=== PATIENT | female | born 1955 | race Caucasian/White ===

== ENCOUNTER 2020-09-10 10:35 | Outpatient (CLI) | payer MEDICARE, BC | END 2020-09-10 10:36 | disposition home or self-care (01) | LOC: BICRAD 10:35 | PROVIDERS: ATTEND Family Medicine | DX: M25.461 Effusion, right knee (principal); M17.11 Unilateral primary osteoarthritis, right knee ==

== ENCOUNTER 2020-09-18 15:00 | Outpatient (CLI) | payer MEDICARE, BC | END 2020-09-18 15:01 | disposition home or self-care (01) | LOC: BICULT 15:00 | PROVIDERS: ATTEND Family Medicine | DX: M79.89 Other specified soft tissue disorders (principal) ==

== ENCOUNTER 2021-04-10 11:07 | Outpatient (CLI) | payer MEDICARE, BC | END 2021-04-10 11:08 | disposition home or self-care (01) | LOC: BICMAMMO 11:07 | PROVIDERS: ATTEND Family Medicine | DX: Z12.31 Encounter for screening mammogram for malignant neoplasm of breast (principal); Z80.3 Family history of malignant neoplasm of breast | CPT/HCPCS: 77063; 77067 ==

== ENCOUNTER 2021-06-22 20:30 | Inpatient (IN) | payer MEDICARE, BC ==
[~2021-06-22 20:30] MED LIST: Iopamidol-370 76% 500 ML 1 ML ONE
[2021-06-22 21:42] LABS: #Eosinphils 0.1 thou/uL (0.0-0.7); #Lymphocytes 1.8 thou/uL (1.20-3.40); %Basophils 0.1 % (0.0-1.0); %Eosinophils 0.7 % (0.0-10.0); %Lymphocytes 18.5 % (21.0-51.0); %Monocytes 9.9 % (0.0-10.0); %Neutrophils 70.8 % (42.0-75.0); Hemoglobin 15.5 g/dL (12.0-16.0); Mean Corpuscular HGB CONC 34.8 g/dL (32.0-36.0); Mean Corpuscular Hemoglobin 32.6 pg (27.0-31.0); Mean Corpuscular Volume 93.7 fL (78.0-98.0); Mean Platelet Volume 6.9 fL (7.4-10.4); Platelet Count 461 thou/uL (130-400); RBC Distribution Width 11.6 % (11.5-14.5); Red Blood Cell (RBC) Count 4.75 mill/uL (4.20-5.40); White Blood Cell (WBC) Count 9.8 thou/uL (4.8-10.8)
[2021-06-22 22:02] LABS: ALT (SGPT) 23 U/L (8-55); AST (SGOT) 23 U/L (5-34); Alkaline Phosphatase 76 U/L (40-110); Anion Gap 19 mmol/L (10-20); BUN (Urea Nitrogen) 12 mg/dL (9.8-20.1); Calc. Creatinine Clearance 0 mL/min (70-130); Calcium 8.9 mg/dL (7.8-10.44); Carbon Dioxide 21 mmol/L (23-31); Chloride 106 mmol/L (98-107); Globulin 2.9 g/dL (2.4-3.5); Glucose 120 mg/dL (80-115); Potassium 3.8 mmol/L (3.5-5.1); Protein, Total 6.9 g/dL (5.8-8.1); Sodium 142 mmol/L (136-145)
[2021-06-22 22:22] LABS: CKMB 1.8 ng/mL (0-6.6)
[2021-06-22 22:27] LABS: Bacteria/HPF None Seen HPF (None Seen); Bilirubin Negative (Negative); Blood, Urine Trace (Negative); Calcium Oxalate Crystals 1+ HPF (None Seen); Clarity Clear (Clear); Glucose, Urine (Dipstick) Normal (Negative); Ketone, Urine 20 mg/dL (Negative); Leukocyte Negative Leu/uL (Negative); Nitrite Negative (Negative); Protein, Urine (Dipstick) 70 mg/dL (Neg-Trace); RBC/HPF 0-3 HPF (0-3); Specific Gravity, Urine 1.035 (1.002-1.036); Squamous Epithelial 0-3 HPF (0-3); WBC/HPF 0-3 HPF (0-3)
[2021-06-22] MEDS ORDERED: Enoxaparin Sodium 100 MG/ML SYRINGE ONE (23:06)
[2021-06-22] MEDS ORDERED: Enoxaparin Sodium 80 MG/0.8 ML SYRINGE ONE (23:07)
[2021-06-23 01:39] LABS: Troponin I 0.282 ng/mL (< 0.028)
[2021-06-23 02:40] LABS: SARS-CoV-2 NAA Rapid Test DETECTED (NotDetected)
[2021-06-23] MEDS ORDERED: Acetaminophen 650 MG Suppository PR PRN (06:50)
[2021-06-23] MEDS ORDERED: Ondansetron PF 4 MG/2 ML Vial IVP PRN (06:50)
[2021-06-23] MEDS ORDERED: Ondansetron ODT 4 MG TAB PO PRN (06:50)
[2021-06-23] MEDS ORDERED: Acetaminophen 325 MG TAB PO PRN (06:50)
[2021-06-23 07:57] LABS: Troponin I 0.216 ng/mL (< 0.028)
[2021-06-23] MEDS ORDERED: Dexamethasone 10 MG/ML VIAL SLOW IVP SCH (09:00)
[2021-06-23] MEDS ORDERED: Enoxaparin Sodium 80 MG/0.8 ML SYRINGE ONE (10:24)
[2021-06-23] MEDS ORDERED: Enoxaparin Sodium 100 MG/ML SYRINGE ONE (10:24)
[2021-06-23] MEDS: Ascorbic Acid 500 mg Chewable Tablet PO SCH (10:30)
[2021-06-23] MEDS: Zinc Sulfate 220 MG CAP PO SCH (10:30)
[2021-06-23] MEDS: Cholecalciferol (Vitamin D3) 400 UNITS TAB PO SCH (10:30)
[2021-06-23] MEDS: Enoxaparin Sodium 80 MG/0.8 ML SYRINGE SC SCH ×2 (10:30→21:04)
[2021-06-23] MEDS: Enoxaparin Sodium 100 MG/ML SYRINGE SC SCH ×2 (10:30→21:04)
[2021-06-23] MEDS ORDERED: Zinc Sulfate 220 MG CAP ONE (10:32)
[2021-06-23] MEDS ORDERED: Ascorbic Acid 500 mg Chewable Tablet ONE (10:32)
[2021-06-23 19:50] VITALS: BMI 55.7
[2021-06-24 06:40] LABS: Hemoglobin 13.4 g/dL (12.0-16.0); Mean Corpuscular HGB CONC 33.6 g/dL (32.0-36.0); Mean Corpuscular Hemoglobin 32.1 pg (27.0-31.0); Mean Corpuscular Volume 95.4 fL (78.0-98.0); Mean Platelet Volume 6.9 fL (7.4-10.4); Platelet Count 387 thou/uL (130-400); RBC Distribution Width 11.8 % (11.5-14.5); Red Blood Cell (RBC) Count 4.18 mill/uL (4.20-5.40); White Blood Cell (WBC) Count 8.6 thou/uL (4.8-10.8)
[2021-06-24 06:52] LABS: Anion Gap 13 mmol/L (10-20); BUN (Urea Nitrogen) 7 mg/dL (9.8-20.1); Calc. Creatinine Clearance 192 mL/min (70-130); Calcium 8.8 mg/dL (7.8-10.44); Carbon Dioxide 25 mmol/L (23-31); Chloride 108 mmol/L (98-107); Glucose 95 mg/dL (80-115); Potassium 3.3 mmol/L (3.5-5.1); Sodium 143 mmol/L (136-145)
[2021-06-24 07:25] LABS: Band 5 % (5-11); Eosinophils 2 % (0-10); Lymphocytes 29 % (21-51); MDiff Complete? YES; Metamyelocyte 1 % (0-0); Monocytes 14 % (0-10); Neutrophil 49 % (42-75); Platelet Morphology Comment Appears Adequate; RBC Morphology Normal
[2021-06-24] MEDS ORDERED: Potassium Chloride 20 MEQ TAB PO SCH (07:30)
[2021-06-24] MEDS: Enoxaparin Sodium 100 MG/ML SYRINGE SC SCH (09:07)
[2021-06-24] MEDS: Cholecalciferol (Vitamin D3) 400 UNITS TAB PO SCH (09:08)
[2021-06-24] MEDS: Enoxaparin Sodium 80 MG/0.8 ML SYRINGE SC SCH (09:08)
[2021-06-24] MEDS: Zinc Sulfate 220 MG CAP PO SCH (09:08)
[2021-06-24] MEDS: Ascorbic Acid 500 mg Chewable Tablet PO SCH (09:08)
[2021-06-24] MEDS: Dexamethasone 4 mg/ml Vial SLOW IVP SCH (11:06)
[2021-06-24] MEDS ORDERED: cefTRIAXone\\ROCEPHIN 1 GM in Sodium Chloride 0.9% 100 ML IVPB SCH (15:00)
[2021-06-24] MEDS: Apixaban 5 MG TAB PO SCH (22:00)
[2021-06-25 06:25] LABS: Anion Gap 11 mmol/L (10-20); BUN (Urea Nitrogen) 8 mg/dL (9.8-20.1); CRP (Inflammatory) 2.71 mg/dL (= or < 0.5); Calc. Creatinine Clearance 205 mL/min (70-130); Calcium 9.1 mg/dL (7.8-10.44); Carbon Dioxide 27 mmol/L (23-31); Chloride 106 mmol/L (98-107); Glucose 106 mg/dL (80-115); Potassium 3.9 mmol/L (3.5-5.1); Sodium 140 mmol/L (136-145)
[2021-06-25] MEDS: Zinc Sulfate 220 MG CAP PO SCH (08:27)
[2021-06-25] MEDS: Dexamethasone 4 mg/ml Vial SLOW IVP SCH (08:27)
[2021-06-25] MEDS: Apixaban 5 MG TAB PO SCH (08:27)
[2021-06-25] MEDS: Cholecalciferol (Vitamin D3) 400 UNITS TAB PO SCH (08:27)
[2021-06-25] MEDS: Ascorbic Acid 500 mg Chewable Tablet PO SCH (08:27)
[2021-06-25 12:45] VITALS: BP 133/65; TEMP 97.7
== END 2021-06-25 14:00 | disposition home or self-care (01) | DRG 175 ==
LOC: ERS 20:30 → ERHOLD 23:34 → 2SE 06-23 19:22
PROVIDERS: ADMIT Student in an Organized Health Care Education/Training Program; ATTEND Family Medicine
PROC: 8E0ZXY6 Isolation (ICD-10-PCS; principal; 2021-06-22)
PROC: 3E0333Z Introduction of Anti-inflammatory into Peripheral Vein, Percutaneous Approach (ICD-10-PCS; 2021-06-23)
DX: I26.99 Other pulmonary embolism without acute cor pulmonale (principal); J96.01 Acute respiratory failure with hypoxia; U07.1 COVID-19; I82.409 Acute embolism and thrombosis of unspecified deep veins of unspecified lower extremity; N39.0 Urinary tract infection, site not specified; Z68.43 Body mass index [BMI] 50.0-59.9, adult; E66.01 Morbid (severe) obesity due to excess calories; K21.9 Gastro-esophageal reflux disease without esophagitis; K80.20 Calculus of gallbladder without cholecystitis without obstruction; R79.89 Other specified abnormal findings of blood chemistry; Z79.82 Long term (current) use of aspirin; Z98.51 Tubal ligation status; Z87.891 Personal history of nicotine dependence; Z79.899 Other long term (current) drug therapy; Z79.52 Long term (current) use of systemic steroids; Z88.1 Allergy status to other antibiotic agents
CPT/HCPCS: 36415; 71045; 71275; 74174; 80048; 80053; 81003; 81015; 82553; 83880; 84484; 85025; 85379; 86140; 87040; 87086; 93005; 93306; 93970; J0696; J1100; J1650; J3490; Q9967; U0002

== ENCOUNTER 2021-07-21 12:13 | Outpatient (CLI) | payer MEDICARE, BC | END 2021-07-21 12:14 | disposition home or self-care (01) | LOC: BICRAD 12:13 | PROVIDERS: ATTEND Family Medicine | DX: R06.02 Shortness of breath (principal) | CPT/HCPCS: 71046 ==

== ENCOUNTER 2022-03-18 14:49 | Outpatient (CLI) | payer MEDICARE, BC | END 2022-03-18 14:50 | disposition home or self-care (01) | LOC: ULT 14:49 | PROVIDERS: ATTEND Internal Medicine Pulmonary Disease | DX: I26.99 Other pulmonary embolism without acute cor pulmonale (principal); I08.0 Rheumatic disorders of both mitral and aortic valves | CPT/HCPCS: 93306 ==

== ENCOUNTER 2022-05-19 13:49 | Outpatient (CLI) | payer MEDICARE, BC | END 2022-05-19 13:50 | disposition home or self-care (01) | LOC: BICULT 13:49 | PROVIDERS: ATTEND Internal Medicine Pulmonary Disease | DX: I26.99 Other pulmonary embolism without acute cor pulmonale (principal) | CPT/HCPCS: 36415; 80053; 82306; 83735; 85025; 93970 ==

== ENCOUNTER 2022-06-14 11:57 | Outpatient (CLI) | payer MEDICARE, BC | END 2022-06-14 11:58 | disposition home or self-care (01) | LOC: BICMAMMO 11:57 | PROVIDERS: ATTEND Family Medicine | DX: Z12.31 Encounter for screening mammogram for malignant neoplasm of breast (principal); Z80.3 Family history of malignant neoplasm of breast | CPT/HCPCS: 77063; 77067 ==

== ENCOUNTER 2023-02-04 09:32 | Outpatient (CLI) | payer MEDICARE, BC ==
[2023-02-04] MEDS ORDERED: Iopamidol-370 76% 500 ML MDV (1 ML CHARGE) ONE (11:07)
== END 2023-02-04 09:33 | disposition home or self-care (01) ==
LOC: BICCT 09:32
PROVIDERS: ATTEND Family Medicine
DX: K43.9 Ventral hernia without obstruction or gangrene (principal); K42.9 Umbilical hernia without obstruction or gangrene; K80.20 Calculus of gallbladder without cholecystitis without obstruction; R93.3 Abnormal findings on diagnostic imaging of other parts of digestive tract
CPT/HCPCS: 74177; Q9967

== ENCOUNTER 2023-04-01 09:05 | Outpatient (CLI) | payer MEDICARE, BC ==
[2023-04-01 10:15] LABS: #Basophils 0.1 10x3/uL (0.0-0.2); #Eosinphils 0.1 10x3/uL (0.0-0.5); #Monocytes 0.7 10x3/uL (0.0-1.1); #Neutrophils 3.2 10x3/uL (1.5-8.4); %Basophils 0.8 % (0.0-2.0); %Eosinophils 1.9 % (0.0-6.0); %Lymphocytes 32.2 % (18.0-47.0); %Neutrophils 53.8 % (40.0-75.0); Hematocrit 44.7 % (34.9-44.5); Hemoglobin 15.5 g/dL (12.0-15.5); Mean Corpuscular HGB CONC 34.7 g/dL (32.0-36.0); Mean Corpuscular Hemoglobin 32.4 pg (27.0-33.0); Mean Corpuscular Volume 93.5 fl (81.6-98.3); Mean Platelet Volume 9.9 fl (7.4-10.4); Platelet Count 282 10x3/uL (150-450); RBC Distribution Width 11.9 % (11.5-14.5); Red Blood Cell (RBC) Count 4.78 10x6/uL (3.90-5.03); White Blood Cell (WBC) Count 5.9 10x3/uL (3.5-10.5)
[2023-04-01 10:28] LABS: ALT (SGPT) 20 U/L (8-55); AST (SGOT) 19 U/L (5-34); Albumin 4.3 g/dL (3.4-4.8); Alkaline Phosphatase 69 U/L (40-110); Anion Gap 15 mmol/L (10-20); BUN (Urea Nitrogen) 15 mg/dL (9.8-20.1); Bilirubin, Direct 0.6 mg/dL (0.1-0.3); Calc. Creatinine Clearance 0 mL/min (70-130); Calcium 9.5 mg/dL (7.8-10.44); Carbon Dioxide 25 mmol/L (23-31); Chloride 105 mmol/L (98-107); Estimated GFR 76; Globulin 2.4 g/dL (2.4-3.5); Glucose 95 mg/dL (80-115); Potassium 4.3 mmol/L (3.5-5.1); Protein, Total 6.7 g/dL (5.8-8.1); Sodium 141 mmol/L (136-145)
== END 2023-04-01 09:06 | disposition home or self-care (01) ==
LOC: LABBT 09:05
PROVIDERS: ATTEND Surgery
DX: Z01.818 Encounter for other preprocedural examination (principal); K80.20 Calculus of gallbladder without cholecystitis without obstruction
CPT/HCPCS: 80053; 80076; 85025; 93005; 93010

== ENCOUNTER 2023-04-06 05:48 | Inpatient (IN) | payer MEDICARE, BC ==
[2023-04-01 09:45] VITALS: BMI 53.1
[2023-04-06] MEDS ORDERED: Indocyanine Green 25 MG/10 ML VIAL ONE (06:55)
[2023-04-06] MEDS ORDERED: EPINEPHrine 1 MG/ML VIAL ONE (06:56)
[2023-04-06] MEDS ORDERED: Bupivacaine 0.25% HCL 30 ML VIAL ONE (06:56)
[2023-04-06] MEDS ORDERED: Sodium Chloride 0.9% 100 ML ONE (07:18)
[2023-04-06] MEDS ORDERED: cefOXitin 2 GM VIAL ONE (07:18)
[2023-04-06] MEDS ORDERED: Dexmedetomidine 200 MCG/2 ML VIAL ONE (07:23)
[2023-04-06] MEDS ORDERED: SUGAMMADEX SODIUM 200 MG/2 ML VIAL ONE (07:24)
[2023-04-06] MEDS ORDERED: Fentanyl 250 MCG/5 ML VIAL ONE (07:24)
[2023-04-06] MEDS ORDERED: Rocuronium Bromide 10 MG/ML (10ML VIAL) ONE (07:40)
[2023-04-06] MEDS ORDERED: NEOSTIGMINE 3 MG/3 ML SYR 3 MG/3 ML SYRINGE ONE (07:40)
[2023-04-06] MEDS ORDERED: Succinylcholine Chloride 100 MG/5 ML SYRINGE FS ONE (07:40)
[2023-04-06] MEDS ORDERED: Glycopyrrolate 0.2 MG/ML 5 ML SYRINGE ONE (07:40)
[2023-04-06] MEDS ORDERED: Dexamethasone 20 MG/5 ML VIAL ONE (07:40)
[2023-04-06] MEDS ORDERED: Lidocaine 1% PF 5 ML VIAL ONE (07:40)
[2023-04-06] MEDS ORDERED: PROPOFOL 200 MG/20 ML VIAL ONE (07:40)
[2023-04-06] MEDS ORDERED: Ondansetron PF 4 MG/2 ML Vial ONE ×2 (07:40→12:56)
[2023-04-06] MEDS ORDERED: HYDROmorphone 2 MG/ML VIAL ONE (09:23)
[2023-04-06] MEDS ORDERED: HYDROmorphone 0.5 MG/0.5 ML SYRINGE ONE ×5 (09:28→10:40)
[2023-04-06] MEDS ORDERED: Calcium Carbonate 500 MG ChewTAB PO PRN (09:40)
[2023-04-06] MEDS ORDERED: Promethazine HCl 25 MG/ML VIAL IM PRN (09:40)
[2023-04-06] MEDS ORDERED: HYDROcodone/Acetaminophen 10/325 mg Tablet PO PRN ×2 (09:40)
[2023-04-06] MEDS ORDERED: Ondansetron PF 4 MG/2 ML Vial IVP PRN (09:40)
[2023-04-06] MEDS ORDERED: Dextrose 50% Abboject 50 ML SYRINGE SLOW IVP PRN (09:40)
[2023-04-06] MEDS ORDERED: Dextrose 5% in Water 1,000 ML IV PRN (09:40)
[2023-04-06] MEDS ORDERED: Mag-Al 1200 mg/1200 mg/30 ML UDCUP PO PRN (09:40)
[2023-04-06] MEDS ORDERED: hydrALAZINE 20 MG/ML VIAL SLOW IVP PRN (09:40)
[2023-04-06] MEDS ORDERED: Ipratropium/Albuterol 3 ML NEB NEB PRN (09:40)
[2023-04-06] MEDS ORDERED: Glucagon 1 MG/ML KIT IM PRN (09:40)
[2023-04-06] MEDS ORDERED: Morphine 4 MG/ML VIAL SLOW IVP PRN (09:40)
[2023-04-06] MEDS ORDERED: Morphine 2 MG/ML VIAL SLOW IVP PRN (09:40)
[2023-04-06] MEDS ORDERED: fentaNYL 50 mcg/mL 1 mL Vial ONE ×2 (10:46→10:59)
[2023-04-06] MEDS ORDERED: Piperacillin/Tazobactam 3.375 GM in Sodium Chloride 0.9% 100 ML IVPB SCH ×2 (11:00→13:45)
[2023-04-06] MEDS: Ketorolac Tromethamine 30 MG/ML VIAL IVP SCH ×2 (12:00→17:08)
[2023-04-06] MEDS: Sodium Chloride 0.9% 1,000 ML IV SCH ×2 (14:02→21:12)
[2023-04-06] MEDS: Piperacillin/Tazobactam 3.375 GM in Sodium Chloride 0.9% 100 ML IVPB SCH (15:22)
[2023-04-06] MEDS ORDERED: FLU VACC QS2023(65UP)/MF59C/PF 60 MCG/0.5 ML SYRINGE IM ONE (15:45)
[2023-04-06] MEDS: Famotidine 20 MG TAB PO SCH (21:13)
[2023-04-06] MEDS: Famotidine/PF 20 mg/2ml Vial SLOW IVP SCH (21:13)
[2023-04-07] MEDS: Piperacillin/Tazobactam 3.375 GM in Sodium Chloride 0.9% 100 ML IVPB SCH ×3 (00:18→17:50)
[2023-04-07] MEDS: Sodium Chloride 0.9% 1,000 ML IV SCH ×3 (00:18→20:55)
[2023-04-07] MEDS: Ketorolac Tromethamine 30 MG/ML VIAL IVP SCH ×4 (00:18→17:59)
[2023-04-07 05:50] LABS: #Monocytes 1.1 thou/uL (0.11-0.59); #Neutrophils 7.7 thou/uL (1.40-6.50); %Basophils 0.2 % (0.0-1.0); %Lymphocytes 11.5 % (21.0-51.0); %Neutrophils 77.1 % (42.0-75.0); Hemoglobin 14.1 g/dL (12.0-16.0); Mean Corpuscular HGB CONC 33.6 g/dL (32.0-36.0); Mean Corpuscular Hemoglobin 32.2 pg (27.0-31.0); Mean Corpuscular Volume 95.9 fl (78.0-98.0); Platelet Count 213 10x3/uL (130-400); RBC Distribution Width 11.9 % (11.5-14.5); Red Blood Cell (RBC) Count 4.38 mill/uL (4.20-5.40)
[2023-04-07 06:18] LABS: ALT (SGPT) 193 U/L (8-55); AST (SGOT) 156 U/L (5-34); Albumin 3.8 g/dL (3.4-4.8); Alkaline Phosphatase 68 U/L (40-110); Anion Gap 10 mmol/L (10-20); BUN (Urea Nitrogen) 11 mg/dL (9.8-20.1); Bilirubin, Total 2.1 mg/dL (0.2-1.2); Calc. Creatinine Clearance 159 mL/min (70-130); Carbon Dioxide 28 mmol/L (23-31); Chloride 107 mmol/L (98-107); Estimated GFR 70; Globulin 2.1 g/dL (2.4-3.5); Glucose 104 mg/dL (80-115); Lipase 5 U/L (8-78); Potassium 4.1 mmol/L (3.5-5.1); Protein, Total 5.9 g/dL (5.8-8.1); Sodium 141 mmol/L (136-145)
[2023-04-07] MEDS: Famotidine/PF 20 mg/2ml Vial SLOW IVP SCH ×2 (08:39→20:54)
[2023-04-07] MEDS: Famotidine 20 MG TAB PO SCH ×2 (08:47→20:53)
[2023-04-07 13:13] LABS: ALT (SGPT) 169 U/L (8-55); AST (SGOT) 114 U/L (5-34); Albumin 3.8 g/dL (3.4-4.8); Alkaline Phosphatase 67 U/L (40-110); Bilirubin, Direct 0.8 mg/dL (0.1-0.3); Bilirubin, Total 2.2 mg/dL (0.2-1.2); Protein, Total 5.8 g/dL (5.8-8.1)
[2023-04-08] MEDS: Piperacillin/Tazobactam 3.375 GM in Sodium Chloride 0.9% 100 ML IVPB SCH ×2 (00:07→08:16)
[2023-04-08] MEDS: Ketorolac Tromethamine 30 MG/ML VIAL IVP SCH ×2 (00:07→05:28)
[2023-04-08] MEDS: Sodium Chloride 0.9% 1,000 ML IV SCH (03:29)
[2023-04-08 06:26] LABS: ALT (SGPT) 120 U/L (8-55); AST (SGOT) 62 U/L (5-34); Albumin 3.4 g/dL (3.4-4.8); Alkaline Phosphatase 65 U/L (40-110); Bilirubin, Direct 0.8 mg/dL (0.1-0.3); Bilirubin, Total 2.3 mg/dL (0.2-1.2); Protein, Total 5.4 g/dL (5.8-8.1)
[2023-04-08 07:57] VITALS: BP 135/71; TEMP 98.5
[2023-04-08] MEDS: Famotidine 20 MG TAB PO SCH (08:16)
[2023-04-08] MEDS: Famotidine/PF 20 mg/2ml Vial SLOW IVP SCH (10:08)
== END 2023-04-08 11:32 | disposition home or self-care (01) | DRG 418 ==
LOC: SDC 05:48 → T4-A 09:44
PROVIDERS: ADMIT Surgery; ATTEND Surgery
PROC: 0FT44ZZ Resection of Gallbladder, Percutaneous Endoscopic Approach (ICD-10-PCS; principal; 2023-04-06)
PROC: 8E0W4CZ Robotic Assisted Procedure of Trunk Region, Percutaneous Endoscopic Approach (ICD-10-PCS; 2023-04-06)
DX: K80.12 Calculus of gallbladder with acute and chronic cholecystitis without obstruction (principal); Z68.43 Body mass index [BMI] 50.0-59.9, adult; E66.01 Morbid (severe) obesity due to excess calories; E11.9 Type 2 diabetes mellitus without complications; K43.9 Ventral hernia without obstruction or gangrene; K21.9 Gastro-esophageal reflux disease without esophagitis; M19.90 Unspecified osteoarthritis, unspecified site; Z98.51 Tubal ligation status; K66.0 Peritoneal adhesions (postprocedural) (postinfection); Z86.711 Personal history of pulmonary embolism
CPT/HCPCS: 36415; 36416; 78226; 80053; 80076; 83690; 85025; 88304; A9537; J0171; J0694; J1100; J1170; J1650; J1885; J2405; J2543; J2704; J3010; J3490; J7050; S0020; S0028

== ENCOUNTER 2023-04-14 10:22 | Outpatient (CLI) | payer OTHER | END 2023-04-14 10:23 | disposition home or self-care (01) | LOC: DTY/OP 10:22 | PROVIDERS: ATTEND Surgery | DX: E66.01 Morbid (severe) obesity due to excess calories (principal) | CPT/HCPCS: 97802 ==

== ENCOUNTER 2023-08-05 22:24 | Emergency (ER) | payer MEDICARE, BC ==
[2023-08-06 00:18] LABS: #Eosinphils 0.1 thou/uL (0.0-0.7); #Neutrophils 6.9 thou/uL (1.40-6.50); %Basophils 0.4 % (0.0-1.0); %Eosinophils 0.9 % (0.0-10.0); %Lymphocytes 22.3 % (21.0-51.0); %Monocytes 9.3 % (0.0-10.0); %Neutrophils 66.4 % (42.0-75.0); Hematocrit 33.1 % (36.0-47.0); Hemoglobin 11.7 g/dL (12.0-16.0); Mean Corpuscular HGB CONC 35.3 g/dL (32.0-36.0); Mean Corpuscular Hemoglobin 33.6 pg (27.0-31.0); Mean Corpuscular Volume 95.1 fl (78.0-98.0); Mean Platelet Volume 10.8 fL (7.4-10.4); Platelet Count 320 10x3/uL (130-400); RBC Distribution Width 13.3 % (11.5-14.5); Red Blood Cell (RBC) Count 3.48 mill/uL (4.20-5.40); White Blood Cell (WBC) Count 10.4 10x3/uL (4.8-10.8)
[2023-08-06 00:35] LABS: ALT (SGPT) 20 U/L (8-55); AST (SGOT) 21 U/L (5-34); Albumin 3.7 g/dL (3.4-4.8); Alkaline Phosphatase 62 U/L (40-110); Anion Gap 15 mmol/L (10-20); BUN (Urea Nitrogen) 11 mg/dL (9.8-20.1); Bilirubin, Total 1.2 mg/dL (0.2-1.2); Calc. Creatinine Clearance 0 mL/min (70-130); Carbon Dioxide 23 mmol/L (23-31); Chloride 103 mmol/L (98-107); Estimated GFR 67; Globulin 2.5 g/dL (2.4-3.5); Glucose 103 mg/dL (80-115); Potassium 3.5 mmol/L (3.5-5.1); Protein, Total 6.2 g/dL (5.8-8.1); Sodium 137 mmol/L (136-145)
== END 2023-08-06 02:17 | disposition home or self-care (01) ==
LOC: ERS 22:24
DX: N93.9 Abnormal uterine and vaginal bleeding, unspecified (principal); Z87.891 Personal history of nicotine dependence
CPT/HCPCS: 36415; 80053; 85025; 86850; 86900; 86901; 99284

== ENCOUNTER 2023-12-13 13:22 | Outpatient (CLI) | payer MEDICARE, BC | END 2023-12-13 13:23 | disposition home or self-care (01) | LOC: BICMAMMO 13:22 | PROVIDERS: ATTEND Family Medicine | DX: Z12.31 Encounter for screening mammogram for malignant neoplasm of breast (principal); Z13.820 Encounter for screening for osteoporosis; N95.9 Unspecified menopausal and perimenopausal disorder; Z80.3 Family history of malignant neoplasm of breast | CPT/HCPCS: 77063; 77067; 77080 ==